=== PATIENT | male | born 1945 | race Caucasian/White ===

== ENCOUNTER 2020-11-09 16:48 | Emergency (ER) | payer MEDICARE, OTHER ==
[~2020-11-09] VITALS: Ht 185.4 cm; Wt 131.5 kg
[~2020-11-09 16:48] MED LIST: ASPIRIN81 M1 PO; ATORVASTATIN CA80 MG PO; CITALOPRAM HBR20 MG PO; COREG3.125 MG PO; DIOVAN80 MG PO; FENOFIBRATE67 MG PO; FLOMAX0.4 MG PO; LANTUS100 UNITS/ SC; LINZESS; METFORMIN HCL500 MG PO; NOVOLOG100 UNITS/ SC; OMEPRAZOLE20 MG PO
[2020-11-09 21:02] VITALS: BP 118/71
== END 2020-11-09 21:03 | disposition home or self-care (01) ==
LOC: ER 16:53
DX: S00.83XA Contusion of other part of head, initial encounter (principal); S50.01XA Contusion of right elbow, initial encounter; S80.02XA Contusion of left knee, initial encounter; Y04.8XXA Assault by other bodily force, initial encounter; Y92.008 Other place in unspecified non-institutional (private) residence as the place of occurrence of the external cause; I10 Essential (primary) hypertension; E11.9 Type 2 diabetes mellitus without complications; E78.5 Hyperlipidemia, unspecified; K21.9 Gastro-esophageal reflux disease without esophagitis; I25.10 Atherosclerotic heart disease of native coronary artery without angina pectoris; G47.30 Sleep apnea, unspecified; I25.2 Old myocardial infarction; Z85.828 Personal history of other malignant neoplasm of skin
CPT/HCPCS: 70450; 70486; 71046; 72125; 99283

== ENCOUNTER 2022-06-03 13:50 | Emergency (ER) | payer MEDICARE ==
[~2022-06-03] VITALS: Ht 185.4 cm; Wt 131.5 kg
[2022-06-03] MEDS ORDERED: ACETAMINOPHEN 325 MG TAB PO ONE (14:30)
[2022-06-03] MEDS ORDERED: PAXLOVID 300-11 EACH PO (15:20)
[2022-06-03] MEDS ORDERED: BENZONATATE100 MG PO (15:20)
== END 2022-06-03 15:38 | disposition home or self-care (01) ==
LOC: ER 14:09
DX: U07.1 COVID-19 (principal); I10 Essential (primary) hypertension; E78.5 Hyperlipidemia, unspecified; E11.9 Type 2 diabetes mellitus without complications; J84.10 Pulmonary fibrosis, unspecified; I25.810 Atherosclerosis of coronary artery bypass graft(s) without angina pectoris; Z95.1 Presence of aortocoronary bypass graft
CPT/HCPCS: 99283; U0002

== ENCOUNTER 2023-09-28 17:24 | Emergency (ER) | payer MEDICARE ==
[~2023-09-28] VITALS: Ht 185.4 cm; Wt 122.5 kg
[~2023-09-28 17:24] MED LIST changes: +BENZONATATE100 MG PO; +DOXYCYCLINE HY100 MG PO; +PAXLOVID 300-11 EACH PO
[2023-09-28 18:10] VITALS: PULSE 99; RESP 18; TEMP 99.8
[2023-09-28 18:50] LABS: INFLUENZAE A&B ANTIGEN (RAPID) NEGATIVE (NEGATIVE); RESPIRATORY SYNC. VIRUS NEGATIVE (NEGATIVE)
[2023-09-28] MEDS ORDERED: VENTOLIN HFA18 GM INH (19:09)
[2023-09-28] MEDS ORDERED: PAXLOVID 300-11 EAC1 PO (19:09)
[2023-09-28] MEDS ORDERED: PREDNISONE20 MG PO (19:09)
[2023-09-28 19:27] VITALS: BP 134/79; PULSE 89; RESP 17; TEMP 98.9; O2SAT 99
== END 2023-09-28 19:28 | disposition home or self-care (01) ==
LOC: ER 17:54
DX: U07.1 COVID-19 (principal); J06.9 Acute upper respiratory infection, unspecified; I10 Essential (primary) hypertension; E78.5 Hyperlipidemia, unspecified; I25.2 Old myocardial infarction; E11.9 Type 2 diabetes mellitus without complications; Z79.4 Long term (current) use of insulin; Z79.84 Long term (current) use of oral hypoglycemic drugs; K21.9 Gastro-esophageal reflux disease without esophagitis; G47.30 Sleep apnea, unspecified; Z85.46 Personal history of malignant neoplasm of prostate; Z85.528 Personal history of other malignant neoplasm of kidney; Z79.899 Other long term (current) drug therapy; Z79.82 Long term (current) use of aspirin
CPT/HCPCS: 71046; 87400; 87420; 99283; U0002

== ENCOUNTER → 2023-11-30 | Day surgery (SDC) | payer MEDICARE ==
[2023-11-27 10:05] LABS: BASOPHILS % 0.7 % (0.0-1.0); EOSINOPHILS # (AUTO) 0.2 (0.0-0.4); EOSINOPHILS % 2.6 % (0.0-6.0); HEMATOCRIT 41.9 % (38.2-49.6); HEMOGLOBIN 13.8 g/dL (14.0-18.0); LYMPHOCYTES # (AUTO) 1.9 (1.0-3.2); LYMPHOCYTES % 32.1 % (18.0-39.1); MEAN CORPUSCULAR HEMOGLOBIN 33.3 pg (28-32); MEAN CORPUSCULAR HGB CONC 32.9 g/dL (31-35); MEAN CORPUSCULAR VOLUME 101.2 fL (81-99); MONOCYTES # (AUTO) 0.6 (0.2-0.8); MONOCYTES % 10.5 % (4.4-11.3); NEUTROPHILS # (AUTO) 3.1 (2.1-6.9); NEUTROPHILS % 53.2 % (38.7-80.0); PLATELET COUNT 167 x10e3/uL (140-360); RED BLOOD COUNT 4.14 x10e6/uL (4.3-5.7); RED CELL DISTRIBUTION WIDTH 13.2 % (11.7-14.4); WHITE BLOOD COUNT 5.79 x10e3/uL (4.8-10.8)
[2023-11-27 11:48] LABS: ANION GAP 14.6 mmol/L (8-16); CALCIUM 9.3 mg/dL (8.4-10.2); CREATININE, SERUM 0.95 mg/dL (0.72-1.25); POTASSIUM 4.6 mmol/L (3.5-5.1)
[~2023-11-30] MED LIST changes: +ACETAMINOPHEN 1000 MG/100 ML IV ONE; +ACETAMINOPHEN 1000 MG/100 ML IV PRN; +ASPIRIN 325 MG TAB PO SCH; +ASPIRIN81 MG PO; +CELECOXIB 100 MG CAP PO SCH; +DIPHENHYDRAMINE HCL INJ 50 MG/ML VIAL IV PRN; +DOCUSATE SODIUM 100 MG CAP PO PRN; +EPINEPHRINE HCL 1:1000 1ML 1 MG/ML AMP ONE; +FENTANYL CITRATE/PF 100MCG/2 ML INJ ONE; +HYDROCODONE/APAP 5MG-325MG TAB PO PRN; +HYDROCODONE/APAP 7.5MG-325MG 1 EA TAB PO PRN; +LIDOCAINE HCL 2% LOCAL INJ 5 ML SDV VIAL INJ ONE; +MIDAZOLAM HCL 2 MG/2 ML VIAL ONE; +ONDANSETRON HCL INJ 2MG/ML 2ML 2 MG/ML VIAL IV PRN; +ONDANSETRON HCL INJ 2MG/ML 2ML 2 MG/ML VIAL ONE; +PAXLOVID 300-11 EAC1 PO; +PREDNISONE20 MG PO; +PROPOFOL IV EMULSION 10 MG/ML 20 ML VIAL ONE; +ROPIVACAINE 0.5% 5 MG/ML 30 ML SDV ONE; +ROPIVACAINE 246.25 MG, EPINEPHRINE HCL 1:1000 1ML 0.5 MG, CLONIDINE HCL 0.08 MG, KETORO... INJ ONE; +SEVOFLURANE INHAL SOLN 250 ML PEN BTL ONE; +SODIUM CHLORIDE 0.9% 1000ML 1,000 ML IV SCH; +SODIUM CHLORIDE 0.9% 500ML 500 ML ONE; +TRANEXAMIC ACID 20 ML ONE; +TRESIBA FL100 UNIT/1; +VENTOLIN HFA18 GM INH; +Vancomycin IV 500 MG ONE
[2023-11-30] MEDS: CEFAZOLIN SODIUM 2 GM ONE (06:21)
[2023-11-30] MEDS: DEXAMETHASONE SOD PHOS 10 MG/1 ML VIAL ONE (06:24)
[2023-11-30] MEDS: CELECOXIB 200 MG CAP ONE (06:24)
[2023-11-30] MEDS: GABAPENTIN 300 MG CAP ONE (06:24)
[2023-11-30] MEDS: LACTATED RINGER'S 1,000 ML ONE (06:25)
[2023-11-30 12:50] VITALS: BP 144/87; PULSE 74; RESP 17; O2SAT 94
== END | disposition home health service (06) ==
LOC: OR 05:14
PROVIDERS: ATTEND Specialist
DX: M17.12 Unilateral primary osteoarthritis, left knee (principal); E11.9 Type 2 diabetes mellitus without complications; I10 Essential (primary) hypertension; I11.0 Hypertensive heart disease with heart failure; I50.9 Heart failure, unspecified; I25.2 Old myocardial infarction; I25.810 Atherosclerosis of coronary artery bypass graft(s) without angina pectoris; K58.9 Irritable bowel syndrome, unspecified; K44.9 Diaphragmatic hernia without obstruction or gangrene; K57.90 Diverticulosis of intestine, part unspecified, without perforation or abscess without bleeding; Z88.8 Allergy status to other drugs, medicaments and biological substances; Z91.041 Radiographic dye allergy status; Z01.810 Encounter for preprocedural cardiovascular examination; Z01.812 Encounter for preprocedural laboratory examination; Z79.82 Long term (current) use of aspirin; Z79.4 Long term (current) use of insulin; Z79.84 Long term (current) use of oral hypoglycemic drugs; Z79.85 Long-term (current) use of injectable non-insulin antidiabetic drugs; Z79.899 Other long term (current) drug therapy; Z68.36 Body mass index [BMI] 36.0-36.9, adult; Z95.1 Presence of aortocoronary bypass graft
CPT/HCPCS: 27447; 36415; 73560; 80048; 85025; 86850; 86900; 93005; 97110; 97116; 97161; 97530; C1713 ×2; C1776 ×3; J0171; J1100; J1885; J2250; J2795; J3010; J3370; J7040; J7121; J2001; J2405

== ENCOUNTER 2024-02-09 11:00 | Outpatient (RCR) | payer MEDICARE ==
[~2024-02-09 11:00] MED LIST changes: -ACETAMINOPHEN 1000 MG/100 ML IV ONE; -ACETAMINOPHEN 1000 MG/100 ML IV PRN; -ASPIRIN 325 MG TAB PO SCH; -CELECOXIB 100 MG CAP PO SCH; -DIPHENHYDRAMINE HCL INJ 50 MG/ML VIAL IV PRN; -DOCUSATE SODIUM 100 MG CAP PO PRN; -EPINEPHRINE HCL 1:1000 1ML 1 MG/ML AMP ONE; -FENTANYL CITRATE/PF 100MCG/2 ML INJ ONE; -HYDROCODONE/APAP 5MG-325MG TAB PO PRN; -HYDROCODONE/APAP 7.5MG-325MG 1 EA TAB PO PRN; -LIDOCAINE HCL 2% LOCAL INJ 5 ML SDV VIAL INJ ONE; -MIDAZOLAM HCL 2 MG/2 ML VIAL ONE; -ONDANSETRON HCL INJ 2MG/ML 2ML 2 MG/ML VIAL IV PRN; -ONDANSETRON HCL INJ 2MG/ML 2ML 2 MG/ML VIAL ONE; -PROPOFOL IV EMULSION 10 MG/ML 20 ML VIAL ONE; -ROPIVACAINE 0.5% 5 MG/ML 30 ML SDV ONE; -ROPIVACAINE 246.25 MG, EPINEPHRINE HCL 1:1000 1ML 0.5 MG, CLONIDINE HCL 0.08 MG, KETORO... INJ ONE; -SEVOFLURANE INHAL SOLN 250 ML PEN BTL ONE; -SODIUM CHLORIDE 0.9% 1000ML 1,000 ML IV SCH; -SODIUM CHLORIDE 0.9% 500ML 500 ML ONE; -TRANEXAMIC ACID 20 ML ONE; -Vancomycin IV 500 MG ONE
== END 2024-02-13 ==
LOC: PT 11:00
PROVIDERS: ATTEND Physician Assistant
DX: Z47.1 Aftercare following joint replacement surgery (principal); Z96.652 Presence of left artificial knee joint; M62.81 Muscle weakness (generalized); M21.372 Foot drop, left foot

== ENCOUNTER → 2024-03-15 | Outpatient (RCR) | payer MEDICARE | LOC: PT 02-15 14:36 | PROVIDERS: ATTEND Physician Assistant | DX: Z47.1 Aftercare following joint replacement surgery (principal); Z96.652 Presence of left artificial knee joint; M62.81 Muscle weakness (generalized); M21.372 Foot drop, left foot ==

== ENCOUNTER 2024-03-28 15:00 | Outpatient (RCR) | payer MEDICARE | END 2024-04-15 | LOC: PT 15:00 | PROVIDERS: ATTEND Physician Assistant | DX: M21.372 Foot drop, left foot (principal) ==